=== PATIENT | female | born 1965 | race Caucasian/White ===

== ENCOUNTER → 2017-03-22 | Outpatient (CLI) | payer MEDICAID ==
[~2017-03-22] MED LIST: ACYC-114 PO; ALEN10TA6 PO; ASPI-496 PO; ATOR20TA9 PO; BORT3.5V SC; BUPR-173 PO; DOCU100T19 PO; GABA300C10 PO; HYDR-3138 PO; HYDR4TAB PO; LENA25CA PO; LISI5TAB7 PO; LORA0.5T PO; MORP-52 PO; MULT-208 PO; OLAN10TA9 PO; OXYC-302 PO; PANT20TA3 PO; SERT50TA5 PO; SULF1TAB23 PO; VALCADE; dexamethasone PO; will bring a list
== END | disposition home or self-care (01) ==
LOC: CFH 12:01
PROVIDERS: ATTEND Internal Medicine Hematology & Oncology
DX: C90.00 Multiple myeloma not having achieved remission (principal)
CPT/HCPCS: 76700